=== PATIENT | male | born 1940 | race Caucasian/White ===

== ENCOUNTER 2024-06-08 06:23 | Emergency (ER) | payer SELFPAY ==
[2024-06-08 06:15] VITALS: BP 000/00; PULSE 0; RESP 0; TEMP 36.3; O2SAT 98
--- NOTE | 2024-06-08 06:27 | PC.NURSE ---
paged postdoctoral scholar at this time
[2024-06-08 06:28] VITALS: BP 000/00; PULSE 0; RESP 0; TEMP 36.3; O2SAT 96; BMI 24.4
[2024-06-08 06:31] VITALS: BMI 24.4
[2024-06-08] MEDS: EPINEPHrine 0.1 MG/ML 10ML SYRINGE (CRASH CART) 1 MG IV (06:33)
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
--- NOTE | 2024-06-08 06:45 | PC.NURSE ---
[facility] notified No contact information for next of kin available at this time Notifying [facility] dispatch to assist with identification
--- NOTE | 2024-06-08 06:46 | PC.NURSE ---
called and spoke with MONIQUE at this time. .
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
--- NOTE | 2024-06-08 07:05 | PC.NURSE ---
[facility] REPLACER AT BEDSIDE
== END 2024-06-08 07:57 | disposition expired ==
LOC: ER 06:49
PROVIDERS: Emergency Provider Emergency Medicine
DX: I46.9 Cardiac arrest, cause unspecified (principal); V49.40XA Driver injured in collision with unspecified motor vehicles in traffic accident, initial encounter
CPT/HCPCS: 92950; 96374; 99285; J0171